=== PATIENT | male | born 1950 ===

== ENCOUNTER 2024-04-05 08:26 | Outpatient (AMB) | payer MEDICARE, MEDICAID, SELFPAY ==
--- NOTE | 2024-04-05 08:02 | A.OFFPC_ITS ---
Vital Signs 04/05/24 08:48 Height 5 ft 3.19 in Weight 192 lb 8 oz BMI 33.9 BP 128/64 Blood Pressure Location Lt brachial Position Sitting Respiration 14 Pulse 53 Pulse Source Pulse Oximeter Temp 98.4 F Temp Source Oral Pulse Oximetry (%) 97 Oxygen Delivery Method Room Air Intake Visit Reasons: Establish Care transfer from [facility] Intake Note: New patient visit Co Chairman Required: No Allergies No Known Allergies Allergy (Verified 04/05/24 08:35) Medication List - Last Reconciled 04/05/24 by Erica Hendrix MD apixaban (Eliquis) 5 mg PO BID cyanocobalamin (vitamin B-12) 1,000 mcg PO DAILY cyclobenzaprine 10 mg PO BEDTIME PRN 30 days diltiazem HCl ER (DILT-XR) 120 mg PO DAILY lisinopril 10 mg PO DAILY prednisone 40 mg (2 x 20 mg) PO DAILY 5 days tramadol 50 mg PO Q8H PRN 7 days Tobacco use date assessed: 04/05/24 Fall risk assessment: No Falls in past year Last assessed Fall Risk: 04/05/24 Dental Screening Dental Screen Date: 04/05/24 Did you have a dental visit in the last 12 months?: Yes Did you have a dental problem in the last 6 months where you did not have access to dental care?: No Was dental information given to patient?: Patient has dentist HPI HPI Comments History of Present Illness Details The patient is a 73 year old male with a past medical history of atrial fibrillation, hypertension, sleep apnea, back & neck pain, presenting for follow up Prediabetes: Last A1C 5.9%. Checking fasting glucose 100-150. Cardiovascular: Atrial fibrillation, hypertension. On lisinopril, diltiazem and eliquis MSK: -Neck/arm pain: Off gabapentin. Had righ t CTS. Cervical xray with DDD. -Thoracic back pain-stable. History of p revious psoterior fusion procedure with 2 Mcgovern rods -Low back pain flare x 2 months. Left wi th radiation to buttock and leg. Denies lower extremity weakness JOANN: Continues on CPAP at 15. Due for colon cancer screening ROS see HPI PHYSICAL EXAM: GENERAL: Alert and oriented x 3. NAD EYES: EOMI. Anicteric. HENT: Moist mucous membranes. No scleral icterus. No cervical lymphadenopathy. LUNGS: Clear to auscultation bilaterally. CARDIOVASCULAR: Regular rate and rhythm. No murmur. No JVD. ABDOMEN: Soft, non-tender +bs EXTREMITIES: No edema. Non-tender. MSK: Left lumbar paraspinal spasm. ttp left SI joint. No LE weakness SKIN: No rashes or lesions. Warm. NEUROLOGIC: No focal neurological deficits. CN II-XII grossly intact PSYCHIATRIC: Cooperative. Appropriate mood and affect [facility] Medical History (Updated 04/05/24 @ 10:00 by Erica Hendrix MD) Scoliosis Vitamin B deficiency Thoracic back pain JOANN (obstructive sleep apnea) Prediabetes Paroxysmal A-fib Obesity, Class I, BMI 30-34.9 Memory change Elevated glucose Dyslipidemia CTS (carpal tunnel syndrome) Cervical radiculopathy Benign essential HTN Arm pain, right Surgical History (Updated 04/05/24 @ 08:05 by Amy Hurd CMA) History of arthroplasty of right knee Hx of spinal surgery Hx of right cataract extraction Family History (Updated 04/05/24 @ 08:06 by Amy Hurd CMA) Mother Liver disease Social History Housing: House Patient Tobacco Use Status: Never used Tobacco e-Cigarette/Vaping Use: Never Used Second Hand Smoke Exposure: No service: No Current occupational status: retired Cognitive needs: No Hearing needs: No Vision needs: No Questionnaire AUDIT C Alcohol Use Questionnaire (AUDIT-C) 1. How often do you have a drink containing alcohol?: Never 3. How often do you have six or more drinks on one occasion?: Never Total Score: 0 Physical exam (Primary Care) Vital Signs: Last Vital Signs Temp 98.4 F 04/05/24 08:48 Pulse 53 04/05/24 08:48 Resp 14 04/05/24 08:48 BP 128/64 04/05/24 08:48 Pulse Ox 97 04/05/24 08:48 Oxygen Delivery Method Room Air 04/05/24 08:48 BMI result Body Mass Index 33.9 Tobacco/Smoking Status: Tobacco use Status Tobacco use date assessed 04/05/24 04/05/24 08:41 Patient Tobacco Use Status Never used Tobacco 04/05/24 08:41 e-Cigarette/Vaping Use Never Used 04/05/24 08:41 Assessment and Plan Assessment & Plan (1) Dyslipidemia: Code(s): E78.5 - Hyperlipidemia, unspecified Plan: Labs ordered (2) Paroxysmal A-fib: Code(s): I48.0 - Paroxysmal atrial fibrillation Plan: continue AC (3) Prediabetes: Code(s): R73.03 - Prediabetes Plan: Check A1C (4) JOANN (obstructive sleep apnea): Code(s): G47.33 - Obstructive sleep apnea (adult) (pediatric) (5) Low back pain: Code(s): M54.50 - Low back pain, unspecified Qualifiers: Chronicity: acute Back pain laterality: left Sciatica presence: with sciatica Sciatica laterality: sciatica of left side Qualified Code(s): M54.42 - Lumbago with sciatica, left side Plan: Prednisone x 5 days, prn tylenol, tramadol short term for pain 7-07/25. May use flexeril at night. If no significant improvement in 1-2 weeks get xrays and PT (6) Screening for prostate cancer: Code(s): Z12.5 - Encounter for screening for malignant neoplasm of prostate Orders: Orders Complete Blood Count Auto Diff Today E78.5 - Hyperlipidemia, unspecified, G47.33 - Obstructive sleep apnea (adult) (pediatric), I48.0 - Paroxysmal atrial fibrillation, M54.50 - Low back pain, unspecified, R73.03 - Prediabetes, Z12.5 - Encounter for screening for malignant neoplasm of prostate Comprehensive Met. Panel Today E78.5 - Hyperlipidemia, unspecified, G47.33 - Obstructive sleep apnea (adult) (pediatric), I48.0 - Paroxysmal atrial fibrillation, M54.50 - Low back pain, unspecified, R73.03 - Prediabetes, Z12.5 - Encounter for screening for malignant neoplasm of prostate Lipid Panel Today E78.5 - Hyperlipidemia, unspecified, G47.33 - Obstructive sleep apnea (adult) (pediatric), I48.0 - Paroxysmal atrial fibrillation, M54.50 - Low back pain, unspecified, R73.03 - Prediabetes, Z12.5 - Encounter for screening for malignant neoplasm of prostate Hemoglobin A1c Today E78.5 - Hyperlipidemia, unspecified, G47.33 - Obstructive sleep apnea (adult) (pediatric), I48.0 - Paroxysmal atrial fibrillation, M54.50 - Low back pain, unspecified, R73.03 - Prediabetes, Z12.5 - Encounter for screening for malignant neoplasm of prostate Prostate Specific Antigen Today E78.5 - Hyperlipidemia, unspecified, G47.33 - Obstructive sleep apnea (adult) (pediatric), I48.0 - Paroxysmal atrial fibrillation, M54.50 - Low back pain, unspecified, R73.03 - Prediabetes, Z12.5 - Encounter for screening for malignant neoplasm of prostate Referrals Gastroenterology Referral I48.0 - Paroxysmal atrial fibrillation, Z12.11 - Encounter for screening for malignant neoplasm of colon Medications: New prednisone 40 mg (2 x 20 mg) PO DAILY 5 days 10 tabs 0RF cyclobenzaprine 10 mg PO BEDTIME 30 days PRN 30 tabs 0RF muscle spasm tramadol 50 mg PO Q8H 7 days PRN 21 tabs 0RF pain Coding Level of Care Code Est Pt Level 5 (80312) Diagnoses Dyslipidemia E78.5 Paroxysmal A-fib I48.0 Prediabetes R73.03 JOANN (obstructive sleep apnea) G47.33 Acute left-sided low back pain with left-sided sciatica M54.42 Chronicity: acute Back pain laterality: left Sciatica presence: with sciatica Sciatica laterality: sciatica of left side Screening for prostate cancer Z12.5 Time Spent (min) 48
[2024-04-05 08:48] VITALS: BP 128/64; PULSE 53; RESP 14; TEMP 36.9; O2SAT 97; BMI 33.9
== END 2024-04-05 09:15 | disposition home or self-care (01) ==
PROVIDERS: Visit Provider Internal Medicine
DX: E78.5 Hyperlipidemia, unspecified (principal); I48.0 Paroxysmal atrial fibrillation; R73.03 Prediabetes; G47.33 Obstructive sleep apnea (adult) (pediatric); M54.42 Lumbago with sciatica, left side; Z12.5 Encounter for screening for malignant neoplasm of prostate
CPT/HCPCS: 99215

== ENCOUNTER 2024-04-05 09:27 | Outpatient (REF) | payer MEDICARE, MEDICAID, SELFPAY ==
[2024-04-05 11:25] LABS: MANUAL DIFF FLAG NO
[2024-04-05 11:29] LABS: Basophils Percent Auto 0.7 % (0-2); Eosinophils Absolute Auto 0.1 X10*3/uL (0.0-0.4); Eosinophils Percent Auto 2.6 % (0-4); Hemoglobin 13.2 g/dl (14.0-18.0); Imm Gran Abs Auto 0.01 X10*3/uL (0.00-0.03); Imm Gran Pct Auto 0.2 % (0.0-0.4); Lymphocytes Absolute Auto 1.5 X10*3/uL (1.2-4.9); Lymphocytes Percent Auto 35.5 % (20-40); Mean Corpuscular HGB Conc 33.8 g/dl (31.0-36.0); Mean Corpuscular Hemoglobin 31.4 pg (27.0-33.0); Mean Corpuscular Volume 92.9 fL (80.0-98.0); Mean Platelet Volume 9.8 fL (9.4-12.4); Monocytes Absolute Auto 0.3 X10*3/uL (0.1-1.2); Monocytes Percent Auto 6.7 % (2-11); Neutrophils Absolute Auto 2.3 x10*3/uL (2.0-8.3); Neutrophils Percent Auto 54.3 % (45-73); Platelet Count 202 X10*3/uL (160-400); Red Cell Distribution Width 13.2 % (11.0-16.0); White Blood Count 4.2 X10*3/uL (4.8-10.8)
[2024-04-05 11:38] LABS: Estimated Average Glucose 120 mg/dL; Hemoglobin A1c % 5.8 % (<6.0)
[2024-04-05 11:48] LABS: Alanine Aminotransferase 16 U/L (0-40); Albumin Level 4.1 g/dL (3.5-5.0); Alkaline Phosphatase 73 U/L (39-117); Anion Gap 11 (12-20); Aspartate Amino Transferase 14 U/L (5-37); Bilirubin Total 0.6 mg/dL (0.0-1.0); Blood Urea Nitrogen 16 mg/dL (9-16); Calcium 9.7 mg/dL (8.4-10.2); Carbon Dioxide 28 mmol/L (22-29); Chloride 106 mmol/L (96-108); Cholesterol 177 mg/dL (<200); Estimated Glomerular Filt Rate > 60; Glucose Random 113 mg/dL (60-115); HDL Cholesterol 50 mg/dL (>40); LDL Cholesterol Calculated 109 mg/dL (<100); Potassium 4.4 mmol/L (3.3-5.1); Sodium 141 mmol/L (135-145); Total Protein 7.4 g/dL (6.5-8.0); Triglycerides 91 mg/dL (<150)
[2024-04-05 12:21] LABS: Prostate Specific Antigen 1.15 ng/mL (<0.05-4.0)
== END 2024-04-05 09:28 | disposition home or self-care (01) ==
LOC: HO.WFDLDS 09:27
PROVIDERS: Visit Provider Internal Medicine
DX: M54.50 Low back pain, unspecified (principal); E78.5 Hyperlipidemia, unspecified; G47.33 Obstructive sleep apnea (adult) (pediatric); R73.03 Prediabetes; I48.0 Paroxysmal atrial fibrillation; Z12.5 Encounter for screening for malignant neoplasm of prostate
CPT/HCPCS: 36415; 80053; 80061; 83036; 84153; 85025

== ENCOUNTER 2024-09-02 10:13 | Outpatient (AMB) | payer MEDICARE, MEDICAID, SELFPAY ==
--- NOTE | 2024-09-02 10:13 | MHC.PC.OV ---
Vital Signs 09/02/24 10:18 Height 5 ft 3.19 in Weight 189 lb BMI 33.3 BP 122/60 Blood Pressure Location Lt brachial Position Sitting Pulse 61 Pulse Source Pulse Oximeter Pulse Oximetry (%) 95 Oxygen Delivery Method Room Air Intake Visit Reasons: est/ referral for back pain/med refill Intake Note: Back pain. [employer]/Hard Of Hearing Required: No Allergies No Known Allergies Allergy (Verified 09/02/24 10:14) Tobacco use date assessed: 04/05/24 Dental Screening Dental Screen Date: 04/05/24 HPI HPI Comments History of Present Illness Details The patient is a 74 year old male with a past medical history of atrial fibrillation, hypertension, sleep apnea, back & neck pain, presenting for follow up Prediabetes: Last A1C 5.8%. Checking fasting glucose 100-150. Cardiovascular: Atrial fibrillation, hypertension. On lisinopril, diltiazem and eliquis MSK: -Neck/arm pain: Off gabapentin. Had right CTS. Cervical xray with DDD. -Thoracic back pain-stable. History of previous psoterior fusion procedure with 2 Mcgovern rods -Low back pain flare x 7 months. Bilateral sciatica worse on left with radiation to buttock and leg. Feels weak sometimes. Worse in morning or after sitting for awhile JOANN: Continues on CPAP at 15. Needs new machine, referral to sleep medicine Due for colon cancer screening . Met with GI and they are supposed to call him to schedule (Vann) ROS see HPI PHYSICAL EXAM: GENERAL: Alert and oriented x 3. NAD EYES: EOMI. Anicteric. HENT: Moist mucous membranes. No scleral icterus. No cervical lymphadenopathy. LUNGS: Clear to auscultation bilaterally. CARDIOVASCULAR: Regular rate and rhythm. No murmur. No JVD. ABDOMEN: Soft, non-tender +bs EXTREMITIES: No edema. Non-tender. MSK: Left lumbar paraspinal spasm. ttp left SI joint. 4/5 left dorsiflexion SKIN: No rashes or lesions. Warm. NEUROLOGIC: No focal neurological deficits. CN II-XII grossly intact PSYCHIATRIC: Cooperative. Appropriate mood and affect [facility] Medical History (Updated 09/02/24 @ 10:32 by Erica Hendrix MD) Scoliosis Vitamin B deficiency Thoracic back pain JOANN (obstructive sleep apnea) Prediabetes Paroxysmal A-fib Obesity, Class I, BMI 30-34.9 Memory change Elevated glucose Dyslipidemia CTS (carpal tunnel syndrome) Cervical radiculopathy Benign essential HTN Arm pain, right Surgical History History of arthroplasty of right knee Hx of spinal surgery Hx of right cataract extraction Family History Mother Liver disease Social History (Updated 09/02/24 @ 10:18 by Amy Hurd CMA) Housing: House Alcohol intake: current Patient Tobacco Use Status: Never used Tobacco e-Cigarette/Vaping Use: Never Used Second Hand Smoke Exposure: No Use of substances other than those prescribed or required for medical reasons: No service: No Current occupational status: retired Cognitive needs: No Hearing needs: No Vision needs: No Physical exam (Primary Care) Vital Signs: Last Vital Signs Pulse 61 09/02/24 10:18 BP 122/60 09/02/24 10:18 Pulse Ox 95 09/02/24 10:18 Oxygen Delivery Method Room Air 09/02/24 10:18 BMI result Body Mass Index 33.3 Tobacco/Smoking Status: Tobacco use Status Tobacco use date assessed 04/05/24 09/02/24 10:17 Patient Tobacco Use Status Never used Tobacco 09/02/24 10:18 e-Cigarette/Vaping Use Never Used 09/02/24 10:18 Coding Level of Care Code Est Pt Level 5 (49923) Diagnoses Lumbar radiculopathy M54.16 Acute left-sided low back pain with left-sided sciatica M54.42 Chronicity: acute Back pain laterality: left Sciatica presence: with sciatica Sciatica laterality: sciatica of left side Prediabetes R73.03 JOANN (obstructive sleep apnea) G47.33 Time Spent (min) 46 Assessment & Plan Assessment & Plan (1) Lumbar radiculopathy: Code(s): M54.16 - Radiculopathy, lumbar region Category: Medical Plan: xray ordered PT ordered Referral to pain management Gabapentin started. He has taken this is the past (2) Low back pain: Code(s): M54.50 - Low back pain, unspecified Category: Medical Qualifiers: Chronicity: acute Back pain laterality: left Sciatica presence: with sciatica Sciatica laterality: sciatica of left side Qualified Code(s): M54.42 - Lumbago with sciatica, left side Plan: see above (3) Prediabetes: Code(s): R73.03 - Prediabetes Category: Medical Plan: stable A1C Efforts toward weight loss. (4) JOANN (obstructive sleep apnea): Code(s): G47.33 - Obstructive sleep apnea (adult) (pediatric) Category: Medical Plan: Refer sleep medicine Orders: Orders XR lumbar spine 2-3V Today M54.16 - Radiculopathy, lumbar region, M54.42 - Lumbago with sciatica, left side PT Evaluation and Treatment Today M54.16 - Radiculopathy, lumbar region, M54.42 - Lumbago with sciatica, left side Referrals Pain Management Referral M54.16 - Radiculopathy, lumbar region, M54.42 - Lumbago with sciatica, left side Sleep Medicine Referral G47.33 - Obstructive sleep apnea (adult) (pediatric) Medications: New diltiazem HCl ER (DILT-XR) 120 mg PO DAILY 90 caps 3RF lisinopril 10 mg PO DAILY 90 tabs 3RF gabapentin Take one tablet oral am, one tablet oral in early afternoon and 2 tab oral before bed as needed for back pain. 360 caps 3RF apixaban (Eliquis) 5 mg PO BID 180 tabs 3RF
[2024-09-02 10:18] VITALS: BP 122/60; PULSE 61; O2SAT 95; BMI 33.3
== END 2024-09-02 12:15 | disposition home or self-care (01) ==
PROVIDERS: Visit Provider Internal Medicine
DX: M54.16 Radiculopathy, lumbar region (principal); M54.42 Lumbago with sciatica, left side; R73.03 Prediabetes; G47.33 Obstructive sleep apnea (adult) (pediatric)

== ENCOUNTER → 2024-09-02 10:13 | Outpatient (BNVA) | payer MEDICARE, MEDICAID, SELFPAY | PROVIDERS: Visit Provider Internal Medicine | DX: M54.16 Radiculopathy, lumbar region (principal); M54.42 Lumbago with sciatica, left side; R73.03 Prediabetes; G47.33 Obstructive sleep apnea (adult) (pediatric); I10 Essential (primary) hypertension; I48.91 Unspecified atrial fibrillation; M54.2 Cervicalgia; Z79.01 Long term (current) use of anticoagulants; Z79.899 Other long term (current) drug therapy | CPT/HCPCS: 99212 ==

== ENCOUNTER 2024-09-24 08:19 | Outpatient (AMB) | payer MEDICARE, MEDICAID, SELFPAY ==
--- NOTE | 2024-09-24 08:29 | MHC.PC.OV ---
Vital Signs 09/24/24 08:34 Height 5 ft 3.19 in Weight 189 lb 4 oz BMI 33.3 BP 132/64 Blood Pressure Location Lt brachial Pulse 75 Pulse Source Pulse Oximeter Pulse Oximetry (%) 96 Oxygen Delivery Method Room Air Intake Visit Reasons: physical/annual wellness Intake Note: Medical annual wellness. Stopped Gabapentin, was experiencing signs of afib. Balance Truing Inspector Required: No Balance Truing Inspector Name: Balance Truing Inspector declined Accompanied by: Spouse Allergies No Known Allergies Allergy (Verified 09/24/24 08:29) Tobacco use date assessed: 04/05/24 Dental Screening Dental Screen Date: 04/05/24 HPI HPI Comments History of Present Illness Details The patient is a 74 year old male with a past medical history of atrial fibrillation, hypertension, sleep apnea, back & neck pain, presenting for physical exam/AWV Prediabetes: Last A1C 5.8%. Checking fasting glucose 100-150. Cardiovascular: Atrial fibrillation, hypertension. On lisinopril, diltiazem and eliquis MSK: Appt with pain management today -Neck/arm pain: Off gabapentin-was not helping. Had right CTS. Cervical xray with DDD. -Thoracic back pain-stable. History of previous psoterior fusion procedure with 2 Mcgovern rods -Low back pain flare x 8 months. Bilateral sciatica worse on left with radiation to buttock and leg. Feels weak sometimes. Worse in morning or after sitting for awhile JOANN: Continues on CPAP at 15. Needs new machine, referred to sleep medicine. Has not heard from the office yet. Number provided today Due for colon cancer screening . Met with GI and they are supposed to call him to schedule (Vann). Number provided today Care team reviewed. Medications reconciled HRA reviewed. Independent ADLs Negative fall risk Declines flu, pneumonia vaccine ROS see HPI PHYSICAL EXAM: GENERAL: Alert and oriented x 3. NAD EYES: EOMI. Anicteric. HENT: Moist mucous membranes. No scleral icterus. No cervical lymphadenopathy. LUNGS: Clear to auscultation bilaterally. CARDIOVASCULAR: Regular rate and rhythm. No murmur. No JVD. ABDOMEN: Soft, non-tender +bs EXTREMITIES: No edema. Non-tender. SKIN: No rashes or lesions. Warm. NEUROLOGIC: No focal neurological deficits. CN II-XII grossly intact PSYCHIATRIC: Cooperative. Appropriate mood and affect [facility] Medical History Scoliosis Vitamin B deficiency Thoracic back pain JOANN (obstructive sleep apnea) Prediabetes Paroxysmal A-fib Obesity, Class I, BMI 30-34.9 Memory change Elevated glucose Dyslipidemia CTS (carpal tunnel syndrome) Cervical radiculopathy Benign essential HTN Arm pain, right Surgical History History of arthroplasty of right knee Hx of spinal surgery Hx of right cataract extraction Family History Mother Liver disease Social History Housing: House Alcohol intake: current Patient Tobacco Use Status: Never used Tobacco e-Cigarette/Vaping Use: Never Used Second Hand Smoke Exposure: No service: No Current occupational status: retired Cognitive needs: No Hearing needs: No Vision needs: No Questionnaire PHQ-9 Over the last 2 weeks, how often have you been bothered by any of the following problems? 1. Little interest or pleasure in doing things: not at all 2. Feeling down, depressed, or hopeless: not at all 3. Trouble falling or staying asleep, or sleeping too much: not at all 4. Feeling tired or having little energy: not at all 5. Poor appetite or overeating: not at all 6. Feeling bad about yourself - or that you are a failure or have let yourself or your family down: not at all 7. Trouble concentrating on things, such as reading the newspaper or watching television: not at all 8. Moving or speaking so slowly that other people could have noticed. Or the opposite - being so fidgety or restless that you have been moving around a lot more than usual: not at all 9. Thoughts that you would be better off or of hurting yourself in some way: not at all Total score: 0 Depression Screening Interpretation: Negative (neg) Depression Screening Done: Yes 55068 - PHQ-9 Billing: Yes Source: Developed by Drs. Silvestre Sanz, Jeanne Munoz, Zachary Nelson and colleagues, with an educational jairo from [employer]. Thrive Questionnaire Date Thrive assessed: 09/24/24 I am a: Patient What is your living situation today?: I have a steady place to live Within the past 12 months, did the food you bought not last and you didn't have the money to get more?: I choose not to answer this question Within the past 12 months, did you worry whether your food would run out before you got money to buy more?: I choose not to answer this question Do you have trouble paying for medicines?: I choose not to answer this question Do you have trouble getting transportation to medical appointments?: I choose not to answer this question Do you have trouble paying your heating and electricity bill?: I choose not to answer this question Do you have trouble taking care of your child, family member or friend?: I choose not to answer this question Do you have trouble with day-to-day activities such as bathing, preparing meals, shopping, managing finances, etc.?: I choose not to answer this question Are you currently unemployed and looking for a job?: I choose not to answer this question Are you interested in more education?: I choose not to answer this question Please select the resources that you would like help with: None Currently or been in a relationship where the following occur: No concerns reported THRIVE Score: 0 AUDIT C Alcohol Use Questionnaire (AUDIT-C) 1. How often do you have a drink containing alcohol?: Monthly or less 2. How many drinks containing alcohol do you have on a typical day when you are drinking?: 1 or 2 3. How often do you have six or more drinks on one occasion?: Never Total Score: 1 HONORIO-7 AMB Questionnaire HONORIO-7 Date HONORIO - 7 assessed: 09/24/24 Feeling nervous, anxious, or on edge: 1 = Several days Not being able to stop or control worryin = Several days Worrying too much about different things: 1 = Several days Trouble relaxin = More than half the days Being so restless that it is hard to sit still: 0 = Not at all Becoming easily annoyed or irritable: 1 = Several days Feeling afraid as if something awful might happen: 1 = Several days Total HONORIO-7 score (0-4 normal; 5-9 mild; 10-14 moderate; 15-21 severe): 7 Source: Developed by Jeanne Resendiz Alexander, Zachary Nelson and colleagues, with an educational jairo from [employer]. HONORIO-7 Assessment Billing HONORIO-7 Assessment Tool: HONORIO-7 Assessment 54665 Physical exam (Primary Care) Vital Signs: Last Vital Signs Pulse 75 09/24/24 08:34 BP 132/64 09/24/24 08:34 Pulse Ox 96 09/24/24 08:34 Oxygen Delivery Method Room Air 09/24/24 08:34 BMI result Body Mass Index 33.3 Tobacco/Smoking Status: Tobacco use Status Tobacco use date assessed 04/05/24 09/24/24 08:39 Patient Tobacco Use Status Never used Tobacco 09/24/24 08:39 e-Cigarette/Vaping Use Never Used 09/24/24 08:39 PHQ-9: PHQ-9 Score PHQ-9: Total score 0 09/24/24 08:48 Depression Screening Interpretation: Negative (neg) Thrive Assessment: Date of Thrive Assessment Date Thrive assessed 09/24/24 09/24/24 08:39 Currently or been in a relationship where the following occur: No concerns reported Coding Level of Care Code Est Pt Level 4 (44122) Diagnoses Medicare annual wellness visit, subsequent Z00.00 Prediabetes R73.03 JOANN (obstructive sleep apnea) G47.33 Acute left-sided low back pain with left-sided sciatica M54.42 Chronicity: acute Back pain laterality: left Sciatica presence: with sciatica Sciatica laterality: sciatica of left side Additional Codes HONORIO-7 Assessment Billing - HONORIO-7 Assessment Tool: HONORIO-7 Assessment 62454 ([id number]) PHQ-9 - 93237 - PHQ-9 Billing: Yes ([id number]) Assessment & Plan Assessment & Plan (1) Medicare annual wellness visit, subsequent: Code(s): Z00.00 - Encounter for general adult medical examination without abnormal findings Category: Medical Plan: see HPI. (2) Prediabetes: Code(s): R73.03 - Prediabetes Category: Medical Plan: HbA1C stable. Continued efforts at weight loss. Activity hampered by back, neck, knee pain (3) JOANN (obstructive sleep apnea): Code(s): G47.33 - Obstructive sleep apnea (adult) (pediatric) Category: Medical Plan: referral pending to sleep medicine (4) Low back pain: Code(s): M54.50 - Low back pain, unspecified Category: Medical Qualifiers: Chronicity: acute Back pain laterality: left Sciatica presence: with sciatica Sciatica laterality: sciatica of left side Qualified Code(s): M54.42 - Lumbago with sciatica, left side Plan: seeing pain management today. recent xray report given to patient Orders: Orders Complete Blood Count Auto Diff Today E78.5 - Hyperlipidemia, unspecified, R73.03 - Prediabetes, Z00.00 - Encounter for general adult medical examination without abnormal findings Vitamin B12 and Folate Today E78.5 - Hyperlipidemia, unspecified, R73.03 - Prediabetes, Z00.00 - Encounter for general adult medical examination without abnormal findings Comprehensive Met. Panel Today E78.5 - Hyperlipidemia, unspecified, R73.03 - Prediabetes, Z00.00 - Encounter for general adult medical examination without abnormal findings IRON PROFILE Today E78.5 - Hyperlipidemia, unspecified, R73.03 - Prediabetes, Z00.00 - Encounter for general adult medical examination without abnormal findings
[2024-09-24 08:34] VITALS: BP 132/64; PULSE 75; O2SAT 96; BMI 33.3
== END 2024-09-24 09:09 | disposition home or self-care (01) ==
PROVIDERS: PCP Internal Medicine; Visit Provider Internal Medicine
DX: Z00.00 Encounter for general adult medical examination without abnormal findings (principal); R73.03 Prediabetes; G47.33 Obstructive sleep apnea (adult) (pediatric); M54.42 Lumbago with sciatica, left side

== ENCOUNTER → 2024-09-24 08:19 | Outpatient (BNVA) | payer MEDICARE, MEDICAID, SELFPAY | PROVIDERS: Visit Provider Internal Medicine | DX: Z00.00 Encounter for general adult medical examination without abnormal findings (principal); R73.03 Prediabetes; G47.33 Obstructive sleep apnea (adult) (pediatric); M54.42 Lumbago with sciatica, left side; I10 Essential (primary) hypertension; I48.91 Unspecified atrial fibrillation; Z79.01 Long term (current) use of anticoagulants; Z79.899 Other long term (current) drug therapy; Z99.89 Dependence on other enabling machines and devices; M54.16 Radiculopathy, lumbar region; M96.1 Postlaminectomy syndrome, not elsewhere classified; M41.9 Scoliosis, unspecified; M54.2 Cervicalgia; M47.817 Spondylosis without myelopathy or radiculopathy, lumbosacral region; G89.4 Chronic pain syndrome; E78.5 Hyperlipidemia, unspecified | CPT/HCPCS: 36415; 80053; 82607; 82746; 83540; 85025; 96127; 99202; 99212 ==

== ENCOUNTER 2024-09-24 09:25 | Outpatient (REF) | payer MEDICARE, MEDICAID, SELFPAY ==
[2024-09-24 11:36] LABS: MANUAL DIFF FLAG NO
[2024-09-24 11:56] LABS: Basophils Absolute Auto 0.1 X10*3/uL (0.0-0.2); Basophils Percent Auto 0.9 % (0-2); Eosinophils Absolute Auto 0.2 X10*3/uL (0.0-0.4); Eosinophils Percent Auto 2.8 % (0-4); Hematocrit 40.5 % (42.0-52.0); Hemoglobin 13.7 g/dl (14.0-18.0); Imm Gran Abs Auto 0.02 X10*3/uL (0.00-0.03); Imm Gran Pct Auto 0.4 % (0.0-0.4); Lymphocytes Absolute Auto 1.4 X10*3/uL (1.2-4.9); Lymphocytes Percent Auto 26.7 % (20-40); Mean Corpuscular HGB Conc 33.8 g/dl (31.0-36.0); Mean Corpuscular Hemoglobin 31.7 pg (27.0-33.0); Mean Corpuscular Volume 93.8 fL (80.0-98.0); Mean Platelet Volume 9.8 fL (9.4-12.4); Monocytes Absolute Auto 0.4 X10*3/uL (0.1-1.2); Monocytes Percent Auto 7.5 % (2-11); Neutrophils Absolute Auto 3.3 x10*3/uL (2.0-8.3); Neutrophils Percent Auto 61.7 % (45-73); Platelet Count 188 X10*3/uL (160-400); Red Blood Count 4.32 X10*6/uL (4.60-5.80); Red Cell Distribution Width 12.9 % (11.0-16.0); White Blood Count 5.3 X10*3/uL (4.8-10.8)
[2024-09-24 12:37] LABS: Alanine Aminotransferase 25 U/L (0-40); Albumin Level 4.1 g/dL (3.5-5.0); Alkaline Phosphatase 79 U/L (39-117); Anion Gap 11 (12-20); Aspartate Amino Transferase 17 U/L (5-37); Bilirubin Total 0.5 mg/dL (0.0-1.0); Blood Urea Nitrogen 15 mg/dL (9-16); Calcium 9.3 mg/dL (8.4-10.2); Carbon Dioxide 32 mmol/L (22-29); Chloride 103 mmol/L (96-108); Estimated Glomerular Filt Rate > 60; Glucose Random 98 mg/dL (60-115); Iron 84 mcg/dL (45-160); Percent Iron Saturation 35 % (15-50); Potassium 4.4 mmol/L (3.3-5.1); Sodium 142 mmol/L (135-145); Total Iron Binding Capacity 237 mcg/dL (228-428); Total Protein 7.6 g/dL (6.5-8.0); Unsaturated Iron Binding 153 ug/dL
[2024-09-24 12:46] LABS: Folate 14.3 ng/mL (> or = 4.0); Vitamin B12 776 pg/mL (200-900)
== END 2024-09-24 09:26 | disposition home or self-care (01) ==
LOC: HO.WFDLDS 09:25
PROVIDERS: Visit Provider Internal Medicine
DX: Z13.89 Encounter for screening for other disorder (principal)
CPT/HCPCS: 36415; 80053; 82607; 82746; 83540; 85025; 99202

== ENCOUNTER 2024-09-24 11:12 | Outpatient (AMB) | payer MEDICARE, MEDICAID, SELFPAY ==
--- NOTE | 2024-09-24 11:13 | MHC.OFFVIS ---
Vital Signs 09/24/24 11:20 Height 5 ft 3.19 in Weight 186 lb 2 oz BMI 32.8 BP 157/72 H Blood Pressure Location Lt brachial Position Sitting Pulse 62 Pulse Source Pulse Oximeter Pulse Oximetry (%) 97 Oxygen Delivery Method Room Air Intake Visit Reasons: Radiculopathy, lumbar region Intake Note: Pain today 03/25 Independent Living Advisor Required: Yes Independent Living Advisor Language: Claim Benefit Specialist Services: Independent Living Advisor Offered & Declined Accompanied by: Spouse Allergies No Known Allergies Allergy (Verified 09/24/24 11:19) HPI HPI Radiculopathy, lumbar region: Details: Patient is a very pleasant 74-year-old Syriac-speaking male with prior history of posterior lumbar fusion with 2 Mcgovern rods over 30 years ago due to a fall from a tree around age 19, obesity, Afib (on [facility]), cervical degenerative disc disease and radiculopathy, severe lumbar scoliosis, right CTS, thoracic back pain, presents today for initial evaluation of worsening chronic low back pain with radiation into left buttock and left posterior lower back with associated numbness and tingling in left foot. Patient's assists with translation per patient's request. Denies any recent trauma, injury, or falls. Patient was previously followed at [facility] [place] Pain Management by Dr. Soto and has received spine injections over 10 years ago with good results. Back pain is most severe in the mornings and with activities, rated 8/10 and less severe at rest or sitting, rated at 2/10. Patient reports chronic daily pain with impaired functioning, mobility, and disrupted sleep. He is interested in starting physical therapy and explore neuromodulation with lumbar SCS for a longer term pain control. Denies any fever or chills, weakness, footdrop, abdominal or groin pain, bladder or bowel dysfunction or saddle anesthesia. Oswestry low back pain disability score=21 (mother disability) Location: Lower back radiates down left leg posteriorly Duration: Chronic pain for many years, flare up x 2 months Characteristics of symptom or complaint: Tugging, pulling, exhausting, tiring, radiating, numbness, shooting Aggravating or associated factors: Movements, walking, standing, bending, twisting, lifting, cold weather Relieving factors: Rest, itting, laying, tylenol arthritis, gabapentin, hot shower, Voltaren Treatment: Back injections, pending PT PFSH Medical History (Updated 09/25/24 @ 22:31 by ATILIO Barrett) Cervicalgia Scoliosis Vitamin B deficiency Thoracic back pain JOANN (obstructive sleep apnea) Prediabetes Paroxysmal A-fib Obesity, Class I, BMI 30-34.9 Memory change Elevated glucose Dyslipidemia CTS (carpal tunnel syndrome) Cervical radiculopathy Benign essential HTN Arm pain, right Surgical History History of arthroplasty of right knee Hx of spinal surgery Hx of right cataract extraction Family History Mother Liver disease Social History Housing: House Alcohol intake: current Patient Tobacco Use Status: Never used Tobacco e-Cigarette/Vaping Use: Never Used Second Hand Smoke Exposure: No service: No Current occupational status: retired Cognitive needs: No Hearing needs: No Vision needs: No Review of Systems Const All systems reviewed & are unremarkable except as noted in HPI and below Physical Exam Vital Signs: Last Vital Signs Pulse 62 09/24/24 11:20 BP 157/72 H 09/24/24 11:20 Pulse Ox 97 09/24/24 11:20 Oxygen Delivery Method Room Air 09/24/24 11:20 BMI result Body Mass Index 32.8 General: Appears afebrile. Alert and oriented. Mood and affect appropriate. Follows and participates in conversation appropriately. Respiratory effort is unlabored. No cough. Able to transition from sit to stand unassisted. Ambulates with bilaterally normal heel strike and toe off, increased pain on the left with toe standing. General: Yes no CVA tenderness Back/Spine/Pelvis Other: Limited lumbar ROM due to pain. Mildly antalgic gait. No limping. Lumbar flexion and extention reproduces moderate pain. No midline tenderness to palpation in the thoracic or lumbar spine. Demonstrates 5/5 right and 4/5 left strength of quadriceps bilaterally as well as flexion/dorsiflexion of bilateral feet against resistance. 2+ pedal pulses bilaterally. Straight leg rise with dorsiflexion positive on the left. Diminished patellar and achilles reflexes bilaterally. Facet loading test positive bilaterally. Quincy sign, Cam?s, Pelvic compression and Stinchfield tests are positive bilaterally. No groin pain with I/E hip rotations. Valsalva maneuver negative. Back: no CVA tenderness Cervical Spine: cervical ROM normal, cervical muscular tenderness, pain with cervical ROM and No Cervical spine tenderness Thoracic/Lumbar Spine: thoracic and lumbar spine normal to inspection, Thoracic/lumbar spine scar(s), Lasegue's sign positive on the left and localized, pain with thoraco-lumbar ROM, paraspinal muscle tenderness, thoraco-lumbar ROM limited, No thoracic spinal tenderness and lumbar spinal tenderness (L4-S1) Pelvis: buttock tenderness on the left and sciatic notch tenderness on the left Sacroiliac joints: bilaterally tender to palpation Extrem General: Yes capillary refill normal, Yes no clubbing, cyanosis or edema and Yes no calf tenderness Results Reviewed Results Reviewed: LUMBAR SPINE 2-3V XR 09/03/24 REASON: Radiculopathy COMPARISON: 05/24/2010 FINDINGS: No change in the partially imaged spinal rods and severe scoliosis. Additional degenerative changes with multilevel endplate osteophytosis and facet arthrosis has progressed since 2009. IMPRESSION: Degenerative changes in the lumbar spine have progressed since 2009. Assessment & Plan Assessment & Plan (1) Lumbar radiculopathy: Code(s): M54.16 - Radiculopathy, lumbar region Category: Medical (2) Failed back syndrome, lumbar: Code(s): M96.1 - Postlaminectomy syndrome, not elsewhere classified Category: Medical (3) Scoliosis: Code(s): M41.9 - Scoliosis, unspecified Category: Medical (4) Cervicalgia: Code(s): M54.2 - Cervicalgia Category: Medical (5) Lumbosacral spondylosis: Code(s): M47.817 - Spondylosis without myelopathy or radiculopathy, lumbosacral region Category: Medical (6) Chronic pain syndrome: Code(s): G89.4 - Chronic pain syndrome Category: Medical Plan Discussed interventional treatments for acute on chronic lower back pain with left sided radiculopathy, including diagnostic versus therapeutic injections, neuromodulation with PNS vs SCS trial vs implant, RFA, ITDD trial and implant. Patient is interested in SCS trial. Extensive discussion regarding the risks and benefits of SCS trial and implant procedures and all questions were answered to patient satisfaction.?Placed referral for psychology clearance in anticipation of SCS trial. Patient will start PT and establish home exercise program. If no improvement, will proceed with lumbar spine MRI. Patient is aware to call if pain worsens or if he develops any red flag symptoms to seek emergency care. Patient denies any cauda equina syndrome symptoms at this time. All questions and concerns have been answered and patient agreed with the treatment plan. Follow-up after PT and sooner as needed. Orders: Orders PT Evaluation and Treatment 09/24/24 M41.9 - Scoliosis, unspecified, M54.16 - Radiculopathy, lumbar region, M54.2 - Cervicalgia, M54.42 - Lumbago with sciatica, left side, M96.1 - Postlaminectomy syndrome, not elsewhere classified Coding Level of Care Code New Pt Level 4 (00024) Complex EM visit Add On G2211 Diagnoses Lumbar radiculopathy M54.16 Failed back syndrome, lumbar M96.1 Scoliosis M41.9 Cervicalgia M54.2 Lumbosacral spondylosis M47.817 Chronic pain syndrome G89.4
[2024-09-24 11:20] VITALS: BP 157/72; PULSE 62; O2SAT 97; BMI 32.8
== END 2024-09-24 11:55 | disposition home or self-care (01) ==
PROVIDERS: Visit Provider Nurse Practitioner Family
DX: M54.16 Radiculopathy, lumbar region (principal); M96.1 Postlaminectomy syndrome, not elsewhere classified; M41.9 Scoliosis, unspecified; M54.2 Cervicalgia; M47.817 Spondylosis without myelopathy or radiculopathy, lumbosacral region; G89.4 Chronic pain syndrome
CPT/HCPCS: 99204; G2211

== ENCOUNTER 2024-10-23 09:00 | Outpatient (RCR) | payer MEDICARE, MEDICAID, SELFPAY ==
--- NOTE | 2024-10-02 15:30 | MHC.PT.EP ---
[facility] [place] Office [place] [facility] [place] Office [address] [phone] F: [phone] F: [phone] F: [phone] F: [phone] Physical Therapy Plan of Care Date of Evaluation: 10/02/24 Date of Surgery: 1982 Diagnosis: LUMBAGO WITH SCIATICA L Assessment: Pt IS 74 YO M REFERRED TO PT FROM [facility] WITH LUMBAR RADICULOPATHY. Pt WITH HX OF FALL OUT OF TREE (9YO) WITH SIGNIF SCOLIOSIS (?BRACING WHEN YOUNG) ALSO R TKR IN PAST PRESENTS WITH SIGNIF SCOLIOSIS WHICH CAUSES R SB POSTURE. LIMITED LE FLEXIBILITY, POOR COR STRENGTH. SHOULD BENEFIT FROM PT TO ADDRESS THESE ISSUES Frequency and Duration: The patient will be seen 1-2X/WK X 6 WKS Short Term Goals: 1. INCREASED AWARENESS BACK CARE AND POSTURE 2. CENTRALIZE SXS OUT OF LEGS 3. IMPROVED GT (?HEEL LIFT) Community Outreach Worker Goals: 1. I HEP WITH DC EX PLAN 2. DECREASED LBP AT LEAST 50% WITH ADLS Treatment Plan: Modalities to reduce pain, spasms and effusion. Manual therapy to restore motion and function. Therapeutic exercise to improve strength and flexibility. Neuromuscular re-education for posture and balance. Therapeutic activities to return to functional activities of daily living. Electronically signed by: JONNATHAN COOPER PT Please sign and return to therapist. Thank you for your referral.
== END 2024-11-12 09:25 | disposition home or self-care (01) ==
LOC: HO.PTWFD 09:00
PROVIDERS: PCP Internal Medicine; Visit Provider Internal Medicine
DX: M54.16 Radiculopathy, lumbar region (principal); M54.42 Lumbago with sciatica, left side
CPT/HCPCS: 97110; 97140; 97162; 97535

== ENCOUNTER 2025-03-18 13:36 | Outpatient (AMB) | payer MEDICARE, MEDICAID, SELFPAY ==
--- NOTE | 2025-03-18 13:44 | A.OFFPC_ITS ---
Vital Signs 03/18/25 13:46 Height 5 ft 3.9 in Weight 192 lb 2 oz BMI 33.1 BP 134/70 Blood Pressure Location Rt brachial Position Sitting Pulse 72 Pulse Source Pulse Oximeter Temp 97.9 F Temp Source Temporal Artery Scan Pulse Oximetry (%) 96 Oxygen Delivery Method Room Air Intake Visit Reasons: ED visit for shoulder pain at [facility] Intake Note: Jorge presets in the office today for an ER follow up. Allergies No Known Allergies Allergy (Verified 03/18/25 13:45) Tobacco use date assessed: 03/18/25 Fall risk assessment: No Falls in past year Last assessed Fall Risk: 03/18/25 Dental Screening Dental Screen Date: 03/18/25 Did you have a dental visit in the last 12 months?: Yes Did you have a dental problem in the last 6 months where you did not have access to dental care?: No Was dental information given to patient?: Patient has dentist HPI HPI Comments History of Present Illness Details The patient is a 74 year old male with a past medical history of atrial fibrillation, hypertension, sleep apnea, back & neck pain, presenting for ER follow up Seen in ER two weeks ago for 2 week history or progressive left shoulder pain. Hurts most at distal clavicle, some swelling. Has not noticed redness. Radiates into the proximal bicep. Hurts most with internal rotation, hyperflexion and hyperextension. Prediabetes: Last A1C 5.8%. Checking fasting glucose 100-150. Increase nocturia, fatigue Cardiovascular: Atrial fibrillation, hypertension. On lisinopril, diltiazem and eliquis MSK: Had appt with pain management in Sep -Neck/arm pain: Off gabapentin-was not h elping. Had right CTS. Cervical xray with DDD. -Thoracic back pain-stable. History of p revious psoterior fusion procedure with 2 Mcgovern rods -Low back pain continues Bilateral sciat ica worse on left with radiation to buttock and leg. Feels weak sometimes. Worse in morning or after sitting for awhile JOANN: Continues on CPAP at 15. Referred to sleep medicine Referred for colon cancer screening ROS see HPI PHYSICAL EXAM: GENERAL: Alert and oriented x 3. NAD EYES: EOMI. Anicteric. HENT: Moist mucous membranes. No scleral icterus. No cervical lymphadenopathy. LUNGS: Clear to auscultation bilaterally. CARDIOVASCULAR: Regular rate and rhythm. No murmur. No JVD. MSK: Tender left AC joint with swelling, without redness. Limited range of motion. Empty can with pain and weaknes-left ABDOMEN: Soft, non-tender +bs EXTREMITIES: No edema. Non-tender. SKIN: No rashes or lesions. Warm. NEUROLOGIC: No focal neurological deficits. CN II-XII grossly intact PSYCHIATRIC: Cooperative. Appropriate mood and affect [facility] Medical History (Updated 03/19/25 @ 10:37 by Erica Hendrix MD) Cervicalgia Scoliosis Vitamin B deficiency Thoracic back pain JOANN (obstructive sleep apnea) Prediabetes Paroxysmal A-fib Obesity, Class I, BMI 30-34.9 Memory change Elevated glucose Dyslipidemia CTS (carpal tunnel syndrome) Cervical radiculopathy Benign essential HTN Arm pain, right Surgical History History of arthroplasty of right knee Hx of spinal surgery Hx of right cataract extraction Family History Mother Liver disease Social History (Updated 03/18/25 @ 13:46 by Tanika Sánchez MA) Housing: House Alcohol intake: current Patient Tobacco Use Status: Never used Tobacco e-Cigarette/Vaping Use: Never Used Second Hand Smoke Exposure: No service: No Current occupational status: retired Cognitive needs: No Hearing needs: No Vision needs: No Questionnaire PHQ-9 Over the last 2 weeks, how often have you been bothered by any of the following problems? 1. Little interest or pleasure in doing things: not at all 2. Feeling down, depressed, or hopeless: not at all 3. Trouble falling or staying asleep, or sleeping too much: several days 4. Feeling tired or having little energy: more than half the days 5. Poor appetite or overeating: not at all 6. Feeling bad about yourself - or that you are a failure or have let yourself or your family down: not at all 7. Trouble concentrating on things, such as reading the newspaper or watching television: not at all 8. Moving or speaking so slowly that other people could have noticed. Or the opposite - being so fidgety or restless that you have been moving around a lot more than usual: not at all 9. Thoughts that you would be better off or of hurting yourself in some way: not at all Total score: 3 Depression Screening Interpretation: Negative Depression Screening Done: Yes 29338 - PHQ-9 Billing: Yes Source: Developed by Drs. Silvestre Sanz, Jeanne Munoz, Zachary Nelson and colleagues, with an educational jairo from [employer]. Thrive Questionnaire Date Thrive assessed: 09/24/24 I am a: Patient What is your living situation today?: I have a steady place to live Within the past 12 months, did the food you bought not last and you didn't have the money to get more?: Never true Within the past 12 months, did you worry whether your food would run out before you got money to buy more?: Never true Do you have trouble paying for medicines?: I choose not to answer this question Do you have trouble getting transportation to medical appointments?: No Do you have trouble paying your heating and electricity bill?: No Do you have trouble taking care of your child, family member or friend?: I choose not to answer this question Do you have trouble with day-to-day activities such as bathing, preparing meals, shopping, managing finances, etc.?: No Are you currently unemployed and looking for a job?: No Are you interested in more education?: No Please select the resources that you would like help with: None Currently or been in a relationship where the following occur: No concerns reported THRIVE Score: 0 AUDIT C Alcohol Use Questionnaire (AUDIT-C) 1. How often do you have a drink containing alcohol?: Monthly or less 2. How many drinks containing alcohol do you have on a typical day when you are drinking?: 1 or 2 3. How often do you have six or more drinks on one occasion?: Never Total Score: 1 HONORIO-7 AMB Questionnaire HONORIO-7 Date HONORIO - 7 assessed: 09/24/24 Feeling nervous, anxious, or on edge: 0 = Not at all Not being able to stop or control worryin = Not at all Worrying too much about different things: 0 = Not at all Trouble relaxin = Not at all Being so restless that it is hard to sit still: 0 = Not at all Becoming easily annoyed or irritable: 0 = Not at all Feeling afraid as if something awful might happen: 0 = Not at all Total HONORIO-7 score (0-4 normal; 5-9 mild; 10-14 moderate; 15-21 severe): 0 Source: Developed by Drs. Silvestre Sanz, Jeanne Munoz, Zachary Nelson and colleagues, with an educational jairo from [employer]. Physical exam (Primary Care) Vital Signs: Last Vital Signs Temp 97.9 F 03/18/25 13:46 Pulse 72 03/18/25 13:46 BP 134/70 03/18/25 13:46 Pulse Ox 96 03/18/25 13:46 Oxygen Delivery Method Room Air 03/18/25 13:46 BMI result Body Mass Index 33.1 Tobacco/Smoking Status: Tobacco use Status Tobacco use date assessed 03/18/25 03/18/25 13:50 Patient Tobacco Use Status Never used Tobacco 03/18/25 13:50 e-Cigarette/Vaping Use Never Used 03/18/25 13:50 PHQ-9: PHQ-9 Score PHQ-9: Total score 3 03/18/25 14:19 Depression Screening Interpretation: Negative Thrive Assessment: Date of Thrive Assessment Date Thrive assessed 09/24/24 03/18/25 13:50 Currently or been in a relationship where the following occur: No concerns reported Coding Level of Care Code Est Pt Level 4 (93089) Complex EM visit Add On G2211 Diagnoses Chronic pain syndrome G89.4 Tear of left supraspinatus tendon M75.102 Laterality: left Acute pain of left shoulder M25.512 Chronicity: acute Additional Codes PHQ-9 - 13245 - PHQ-9 Billing: Yes ([id number]) Assessment & Plan Assessment & Plan (1) Chronic pain syndrome: Code(s): G89.4 - Chronic pain syndrome Category: Medical (2) Supraspinatus tendon tear: Code(s): M75.100 - Unspecified rotator cuff tear or rupture of unspecified shoulder, not specified as traumatic Category: Medical Qualifiers: Laterality: left Qualified Code(s): M75.102 - Unspecified rotator cuff tear or rupture of left shoulder, not specified as traumatic (3) Left shoulder pain: Code(s): M25.512 - Pain in left shoulder Category: Medical Qualifiers: Chronicity: acute Qualified Code(s): M25.512 - Pain in left shoulder Plan Physical exam concerning for rotator cuff pathology MRI ordered Referral to ortho placed Tramadol, tylenol prn Fatigue-labs ordered Orders: Orders MR shoulder LT wo con 03/18/25 M25.512 - Pain in left shoulder, M75.100 - Unspecified rotator cuff tear or rupture of unspecified shoulder, not specified as traumatic Prostate Specific Antigen 03/18/25 G89.4 - Chronic pain syndrome, R35.1 - Nocturia, R53.83 - Other fatigue Pathologist Review - CBC 03/18/25 G89.4 - Chronic pain syndrome, R35.1 - Nocturia, R53.83 - Other fatigue Hemoglobin A1c 03/18/25 G89.4 - Chronic pain syndrome, R35.1 - Nocturia, R53.83 - Other fatigue Lyme IgG/IgM w/reflex to WB 03/18/25 G89.4 - Chronic pain syndrome, R35.1 - Nocturia, R53.83 - Other fatigue Complete Blood Count Auto Diff 03/18/25 G89.4 - Chronic pain syndrome, R35.1 - Nocturia, R53.83 - Other fatigue Comprehensive Met. Panel 03/18/25 G89.4 - Chronic pain syndrome, R35.1 - Nocturia, R53.83 - Other fatigue Vitamin B12 and Folate 03/18/25 G89.4 - Chronic pain syndrome, R35.1 - Nocturia, R53.83 - Other fatigue UA CC w/rflx Micro + Cult 03/18/25 R35.1 - Nocturia Referrals Orthopedics Referral M25.512 - Pain in left shoulder, M75.100 - Unspecified rotator cuff tear or rupture of unspecified shoulder, not specified as traumatic Medications: New tramadol 50 mg PO Q6H PRN 42 tabs 0RF pain
[2025-03-18 13:46] VITALS: BP 134/70; PULSE 72; TEMP 36.6; O2SAT 96; BMI 33.1
--- OUTSIDE RECORDS SUMMARY | 2025-03-18 15:16 | XMS_ITS | Encounter Summary ---
Author Organization [facility] [employer] [facility] Address [address] [place] [address] Care Team Providers Care Supervisor Filling And Packing Name Role Phone Unavailable Primary Care Provider Unavailabl e Encounter Details Date Type Department Care Team (Latest Contact Info) Description 09/28/2021 Abstract C CONVERSIONS Dental, Provider, DDS Social History Tobacco Use Types Packs/Day Years Used Date Smoking Tobacco: Never Assessed Sex and Gender Information Value Date Recorded Sex Assigned at Male 08/15/2022 10:23 AM EDT Legal Sex Male 10:23 AM EDT Gender Identity Choose not to disclose 10:23 AM EDT Sexual Orientation Straight 08/15/2022 10 :23 AM EDT documented as of this encounter Plan of Treatment Not on file documented as of this encounter Visit Diagnoses Not on filedocumented in this encounter
== END 2025-03-18 14:14 | disposition home or self-care (01) ==
LOC: HO.HMCFM 13:36
PROVIDERS: PCP Internal Medicine; Visit Provider Internal Medicine
DX: G89.4 Chronic pain syndrome (principal); M75.102 Unspecified rotator cuff tear or rupture of left shoulder, not specified as traumatic; M25.512 Pain in left shoulder

== ENCOUNTER → 2025-03-18 13:36 | Outpatient (BNVA) | payer MEDICARE, MEDICAID, SELFPAY | PROVIDERS: PCP Internal Medicine; Visit Provider Internal Medicine | DX: Z13.89 Encounter for screening for other disorder (principal) | CPT/HCPCS: 96127; 99212 ==

== ENCOUNTER 2025-03-18 14:20 | Outpatient (REF) | payer MEDICARE, MEDICAID, SELFPAY ==
[2025-03-18 18:31] LABS: MANUAL DIFF FLAG NO
[2025-03-18 18:46] LABS: Appearance Urine Clear; Color Urine Yellow; Glucose Urine UA Negative (Negative); Leukocyte Esterase Urine Negative (Negative); Nitrite Urine Negative (Negative); PH 7.5 (5.0-9.0); Specific Gravity - Urine 1.015 (1.005-1.025); Urine Blood Negative (Negative); Urine Ketones Negative (Negative); Urine Protein Negative (Neg-Trace)
[2025-03-18 18:46] LABS: Basophils Percent Auto 0.6 % (0-2); Eosinophils Absolute Auto 0.1 X10*3/uL (0.0-0.4); Eosinophils Percent Auto 2.8 % (0-4); Hematocrit 37.4 % (42.0-52.0); Hemoglobin 12.6 g/dl (14.0-18.0); Imm Gran Abs Auto 0.01 X10*3/uL (0.00-0.03); Imm Gran Pct Auto 0.2 % (0.0-0.4); Lymphocytes Absolute Auto 1.8 X10*3/uL (1.2-4.9); Lymphocytes Percent Auto 35.6 % (20-40); Mean Corpuscular HGB Conc 33.7 g/dl (31.0-36.0); Mean Corpuscular Hemoglobin 31.5 pg (27.0-33.0); Mean Corpuscular Volume 93.5 fL (80.0-98.0); Monocytes Absolute Auto 0.3 X10*3/uL (0.1-1.2); Monocytes Percent Auto 6.6 % (2-11); Neutrophils Absolute Auto 2.7 x10*3/uL (2.0-8.3); Neutrophils Percent Auto 54.2 % (45-73); Platelet Count 198 X10*3/uL (160-400); Red Cell Distribution Width 13.2 % (11.0-16.0)
[2025-03-18 18:58] LABS: Alanine Aminotransferase 24 U/L (0-40); Albumin Level 4.1 g/dL (3.5-5.0); Alkaline Phosphatase 81 U/L (39-117); Anion Gap 9 (12-20); Aspartate Amino Transferase 19 U/L (5-37); Bilirubin Total 0.4 mg/dL (0.0-1.0); Blood Urea Nitrogen 18 mg/dL (9-16); Carbon Dioxide 29 mmol/L (22-29); Chloride 105 mmol/L (96-108); Estimated Glomerular Filt Rate > 60; Glucose Random 138 mg/dL (60-115); Sodium 139 mmol/L (135-145); Total Protein 7.1 g/dL (6.5-8.0)
[2025-03-18 19:24] LABS: Folate 11.2 ng/mL (> or = 4.0); Prostate Specific Antigen 1.38 ng/mL (<0.05-4.0); Vitamin B12 445 pg/mL (200-900)
[2025-03-19 05:50] LABS: Estimated Average Glucose 120 mg/dL; Hemoglobin A1c % 5.8 % (<6.0)
[2025-03-19 05:53] LABS: Lyme Abs Screen <0.90 index
== END 2025-03-18 14:21 | disposition home or self-care (01) ==
LOC: HO.WFDLDS 14:20
PROVIDERS: Visit Provider Internal Medicine
DX: G89.4 Chronic pain syndrome (principal); R35.1 Nocturia; R53.83 Other fatigue; I48.91 Unspecified atrial fibrillation; I10 Essential (primary) hypertension; R73.03 Prediabetes; M75.102 Unspecified rotator cuff tear or rupture of left shoulder, not specified as traumatic; Z12.5 Encounter for screening for malignant neoplasm of prostate; Z79.01 Long term (current) use of anticoagulants; Z79.899 Other long term (current) drug therapy
CPT/HCPCS: 80053; 81003; 82607; 82746; 83036; 84153; 85025; 86617; 86618; 96127; 99212

== ENCOUNTER 2025-03-23 09:33 | Outpatient (REF) | payer MEDICARE, MEDICAID, SELFPAY ==
--- NOTE | ~2025-03-23 | MR_ITS ---
CLINICAL HISTORY: M25.512 - Pain in left shoulder MR left shoulder without gadolinium Comparison: OT - MR SHOULDER LT WO CON - 03/23/25 10:07 EDT Findings: No acute fractures. No pathologic bone lesions. 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 Type II acromion without downsloping. Small glenohumeral joint effusion. 14 mm diameter intra-articular loose body within the inferior glenoid recess. There is full-thickness tearing of the mid/posterior supraspinatus tendon at the humeral insertion site with associated supraspinatus atrophy. There is low-grade articular surface and intrasubstance tearing of the anterior and mid infraspinatus tendon at the humeral insertion site extending to the musculotendinous junction. Teres minor is intact. Subscapularis demonstrates low-grade intrasubstance and articular surface tearing of the mid/superior aspect of the humeral insertion site extending to the musculotendinous junction. The long head of biceps is intact. There is undercutting of the posterosuperior labrum with associated paralabral cyst formation. IMPRESSION: 1. Full-thickness tearing and atrophy of the supraspinatus tendon. 2. Low-grade tearing of the subscapularis and infraspinatus tendons. 3. Glenohumeral joint effusion with intra-articular loose body. 4. Glenoid labral tearing. This document has been electronically signed by: Safia Sampson MD on 03/24/2025 15:34:51
== END 2025-03-23 09:34 | disposition home or self-care (01) ==
LOC: HO.MRI 09:33
PROVIDERS: PCP Internal Medicine; Visit Provider Internal Medicine
DX: M25.512 Pain in left shoulder (principal); M75.100 Unspecified rotator cuff tear or rupture of unspecified shoulder, not specified as traumatic
CPT/HCPCS: 73221

== ENCOUNTER → 2025-03-23 09:37 | Outpatient (BNV) | payer MEDICARE, MEDICAID, SELFPAY | PROVIDERS: PCP Internal Medicine; Visit Provider Radiology Diagnostic Radiology | DX: M75.122 Complete rotator cuff tear or rupture of left shoulder, not specified as traumatic (principal); S43.432A Superior glenoid labrum lesion of left shoulder, initial encounter; M24.012 Loose body in left shoulder; M25.412 Effusion, left shoulder | CPT/HCPCS: 73221 ==

== ENCOUNTER 2025-06-10 08:34 | Outpatient (AMB) | payer MEDICARE, MEDICAID, SELFPAY ==
--- NOTE | 2025-06-10 08:37 | MHC.OFFVIS ---
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 Patient reports ongoing pain for about 2 months . He states that his pain is sharp/throbbing on the lateral aspect of the shoulder. He mentions that his range of motion is limited due to his pain. Patient expresses that his pain is worse when he is laying on his side, lifting his arm and lifting heavy items. He has tried tramadol, Tylenol and Aleve which has provided little relief for pain. IMPRESSION: 1. Full-thickness tearing and atrophy of the supraspinatus tendon. 2. Low-grade tearing of the subscapularis and infraspinatus tendons. 3. Glenohumeral joint effusion with intra-articular loose body. 4. Glenoid labral tearing. 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 Moshe ahumada is a 75 right-hand dominant male who presents to the office today accompanied by his for left shoulder pain. He reports that his pain began roughly 2 months ago. Initially, the pain was sharp and throbbing on the lateral side of the shoulder. He was lacking the ability to raise his arm to the front of his his body into the side of his body. Since making his appointment, the pain has drastically subsided. He does still have some slight discomfort. He reports that the majority of his pain is at night when he is trying to lay on his left shoulder. Patient was seen by his primary care provider where x-rays and an MRI was obtained. He was referred to Orthopedics for further evaluation and treatment. Of note, the patient can not take NSAIDs due to a past medical history significant for AFib on Eliquis. [facility] Medical History (Updated 06/10/25 @ 10:38 by Liz Garcia PA-C) Cervicalgia Scoliosis Vitamin B deficiency Thoracic back pain JOANN (obstructive sleep apnea) Prediabetes Paroxysmal A-fib Obesity, Class I, BMI 30-34.9 Memory change Elevated glucose Dyslipidemia CTS (carpal tunnel syndrome) Cervical radiculopathy Benign essential HTN Arm pain, right Surgical History History of arthroplasty of right knee Hx of spinal surgery Hx of right cataract extraction Family History Mother Liver disease Social History (Updated 03/18/25 @ 13:46 by Tanika Sánchez MA) Housing: House Alcohol intake: current Patient Tobacco Use Status: Never used Tobacco e-Cigarette/Vaping Use: Never Used Second Hand Smoke Exposure: No service: No Current occupational status: retired Cognitive needs: No Hearing needs: No Vision needs: No Review of Systems Const All systems reviewed & are unremarkable except as noted in HPI and below Physical Exam Vital Signs: BMI result Body Mass Index 33.6 Const General: cooperative, healthy appearing and no acute distress Resp Effort & Inspection: normal respiratory effort and able to speak in complete sentences Extrem Other: Left shoulder: Lacking roughly 20 degrees forward flexion and abduction. Mild pain with cross-body reach. Significant weakness with empty can. NVI. Psych Appearance: grossly normal Mental Status: mental status grossly normal Attitude: cooperative Assessment & Plan Assessment & Plan (1) Complete rotator cuff tear of left shoulder: Code(s): M75.122 - Complete rotator cuff tear or rupture of left shoulder, not specified as traumatic Category: Medical (2) Osteoarthritis of left shoulder: Code(s): M19.012 - Primary osteoarthritis, left shoulder Category: Medical (3) Rotator cuff arthropathy of left shoulder: Code(s): M12.812 - Other specific arthropathies, not elsewhere classified, left shoulder Category: Medical Plan Mr. Mesa this is a 75 right-hand dominant male who presents to the office today accompanied by his for left shoulder pain. He reports that his pain began roughly 2 months ago. Initially, the pain was sharp and throbbing on the lateral side of the shoulder. He was lacking the ability to raise his arm to the front of his his body into the side of his body. Since making his appointment, the pain has drastically subsided. He does still have some slight discomfort. He reports that the majority of his pain is at night when he is trying to lay on his left shoulder. Patient was seen by his primary care provider where x-rays and an MRI was obtained. He was referred to Orthopedics for further evaluation and treatment. Of note, the patient can not take NSAIDs due to a past medical history significant for AFib on Eliquis. While in the office today, I was able to review the MRI that was obtained of the left shoulder on 03/24/2025. The findings are significant for a full-thickness tear of the supraspinatus tendon with muscle atrophy as well as low gait tearing of the subscap and infraspinatus tendons. Lastly, there is intra-articular loose body in the glenohumeral joint. I explained these findings with the patient and recommended conservative versus surgical treatment options. We discussed the role of cortisone injections, however at this time the patient reports that the pain has significantly subsided and therefore he would like to hold off. Should his pain return I would be happy to offer him a cortisone injection. We also discussed the role of physical therapy in which he will hold off at this time. Ultimately, the definitive treatment for this condition would be a left total shoulder replacement in which the patient understands and would like to avoid. He will follow up PRN, sooner if needed. X-rays of the left shoulder which were obtained on the 03/03/2025, revealed degenerative changes. No fracture or dislocation. MRI of the left shoulder obtained on 03/24/2025: IMPRESSION: 1. Full-thickness tearing and atrophy of the supraspinatus tendon. 2. Low-grade tearing of the subscapularis and infraspinatus tendons. 3. Glenohumeral joint effusion with intra-articular loose body. 4. Glenoid labral tearing. Coding Level of Care Code New Pt Level 4 (91112) Diagnoses Complete rotator cuff tear of left shoulder M75.122 Osteoarthritis of left shoulder M19.012 Rotator cuff arthropathy of left shoulder M12.812
[2025-06-10 08:41] VITALS: BMI 33.6
--- OUTSIDE RECORDS SUMMARY | 2025-06-10 08:46 | XMS_ITS | Encounter Summary ---
Author Organization [facility] [employer] [facility] Address [address] [place] [address] Care Team Providers Care Call Center Recruiter Name Role Phone Unavailable Primary Care Provider Unavailabl e Encounter Details Date Type Department Care Team (Latest Contact Info) Description 03/19/2019 Abstract C CONVERSIONS Dental, Provider, DDS Social [...]
--- OUTSIDE RECORDS SUMMARY | 2025-06-10 08:46 | XMS_ITS | Clinical Summary ---
Author Organization [facility], [facility] [employer] Address [address] [place] [address] Care Team Providers Care Hand Edger Name Role Phone Unavailable Primary Care Provider Unavailabl e Allergies No known active allergies Medications apixaban (Eliquis) 5 MG tablet Eliquis 5 mg tablet TAKE 1 TABLET BY MOUTH TWICE DAILY Active Dilt-XR 120 MG 24 hr capsule TAKE 1 BY MOUTH ONCE DAILY FOR 90 DAYS 02/09/2023 Active lisinopril 10 MG tablet TAKE 1 TABLET BY MOUTH ONCE DAILY FOR 90 DAYS 12/10/2022 Active cyanocobalamin (Vitamin B-12) 1000 MCG tablet Take 1,000 mcg by mouth in the morning. 10/17/2023 Active ergocalciferol (Vitamin D-2) 1.25 MG (95062 UT) capsule take 1 capsule by oral route every week Active gabapentin (Neurontin) 300 MG capsule TAKE 1 TO 2 CAPSULES BY MOUTH ONCE DAILY AT BEDTIME 07/12/2023 Active lisinopril 10 MG tablet Active magnesium 200 MG tablet Active Social History Tobacco Use Types Packs/Day Years Used Date Smoking Tobacco: Never Smokeless Tobacco: Never Tobacco Cessation:Counseling Given: Not Answered Alcohol Use Standard Drinks/Week Comments Never 0 (1 standard drink = 0.6 oz pur e alcohol) Sex and Gender Information Value Date Recorded Sex Assigned at Male 08/15/2022 10:23 AM EDT Legal Sex Male 10:23 AM EDT Gender Identity Choose not to disclose 10:23 AM EDT Sexual Orientation Straight 08/15/2022 10 :23 AM EDT Last Filed Vital Signs Vital Sign Reading Time Taken Comments Blood Pressure 120/72 08/14/2024 9:44 AM EDT Pulse 59 06/13/2024 10:18 AM EDT Temperature - - Respiratory Rate - - Oxygen Saturation - - Inhaled Oxygen Concentration - - Weight - - Height - - Body Mass Index - - Plan of Treatment Health Maintenance Due Date Last Done Comments Anal Pap 1951 CT Colonography 1951 Colonoscopy 1951 Colorectal Cancer Screening 1951 Dental Oral Exam 1951 Dental X-Ray: Full Mouth 1951 Depression Screening 1951 FIT DNA/Cologuard 1951 FIT 1951 FOBT 1951 Lipid Panel 1951 SDOH Screening 1951 Sigmoidoscopy 1951 Alcohol/Substance Use Screening 1963 Hepatitis C Screening 1969 Hepatitis A Vaccines (1 of 2 - Risk 2-dose series) 1970 Zoster Vaccines (1 of 2) 2001 Hepatitis B Vaccines (1 of 3 - Risk 3-dose series) 2011 RSV Patients and Patients Aged 60 years or older (1 - Risk 60-74 years 1-dose series) 2011 Pneumococcal Vaccine: 50+ Years (3 of 3 - PCV20 or PCV21) 08/14/2023 08/14/2018, 12/15/2005 COVID-19 Vaccine (3 - season) 2024 02/05/2021, 01/14/2021 Dental Prophylaxis 12/14/2024 06/13/2024, 0 12/12/2023, 03/06/2023 Dental X-Ray: Bitewings 06/14/2025 06/13/2024, 11/01 Influenza Vaccine (#1) 2025 8, 08/14/2018, 08/11/2014, Additional history exists Tobacco Screening 08/14/2025 08/14/2024 DTaP/Tdap/Td Vaccines (3 - Td or Tdap) 11/03/2032 11/03/2022, 08/31/2009, 12/15/2005 HIB Vaccines Aged Out No longer eligi ble based on patient's age to complete this topic HPV Vaccines Aged Out No longer eligi ble based on patient's age to complete this topic IPV Vaccines Aged Out No longer eligi ble based on patient's age to complete this topic Meningococcal B Vaccine Aged Out No l onger eligible based on patient's age to complete this topic Meningococcal Vaccine Aged Out No shad addie eligible based on patient's age to complete this topic RSV under 20 months Aged Out No longe r eligible based on patient's age to complete this topic Rotavirus Vaccines Aged Out No longer eligible based on patient's age to complete this topic Procedures Procedure Name Priority Date/Time Associated Diagnosis Comments PROPHYLAXIS - ADULT Routine 06/13/2024 1 0:00 AM EDT BITEWINGS - 4 RADIOGRAPHIC IMAGES Routine 06/13/2024 10:00 AM EDT from Last 3 Months or Most Recently Relevant to Health Maintenance Insurance [facility] MEDICA[employer] STAND ADULT
--- OUTSIDE RECORDS SUMMARY | 2025-06-10 08:46 | XMS_ITS | Encounter Summary ---
Author Organization [employer] [facility] Address [address] [place] [address] Care Team Providers Care Data Processing Clerk Name Role Phone Unavailable Primary Care Provider [...]
== END 2025-06-10 09:03 | disposition home or self-care (01) ==
LOC: HO.HOS 08:35
PROVIDERS: PCP Internal Medicine; Visit Provider Physician Assistant
DX: M75.122 Complete rotator cuff tear or rupture of left shoulder, not specified as traumatic (principal); M19.012 Primary osteoarthritis, left shoulder; M12.812 Other specific arthropathies, not elsewhere classified, left shoulder
CPT/HCPCS: 99204

== ENCOUNTER → 2025-06-10 08:34 | Outpatient (BNVA) | payer MEDICARE, MEDICAID, SELFPAY | PROVIDERS: PCP Internal Medicine; Visit Provider Physician Assistant | DX: M75.122 Complete rotator cuff tear or rupture of left shoulder, not specified as traumatic (principal); M19.012 Primary osteoarthritis, left shoulder; M12.812 Other specific arthropathies, not elsewhere classified, left shoulder | CPT/HCPCS: 99202 ==